=== PATIENT | female | born 1970 | race Caucasian/White ===

== ENCOUNTER 2017-10-03 18:11 | Emergency (ER) | payer OTHER ==
--- NOTE | 2017-10-03 19:20 | EDM.PDOC ---
ED HPI GENERAL MEDICAL PROBLEM - General Chief Complaint: Lower Extremity Injury/Pain Stated Complaint: PT HURT LT FOOT Time Seen by Provider: 10/03/17 18:28 Source of Information: Reports: Patient History Limitations: Reports: No Limitations - History of Present Illness INITIAL COMMENTS - FREE TEXT/NARRATIVE: HISTORY AND PHYSICAL: History of present illness: Winifred is a 46-year-old female for left ankle injury. That she was going down the stairs quickly and on the last step she stepped wrong and everted her left ankle. She is having pain on the left lateral side of the ankle with some swelling and bruise. She is unable to put weight on it. Review of systems: As per history of present illness and below otherwise all systems reviewed and negative. Past medical history: As per history of present illness and as reviewed below otherwise noncontributory. Surgical history: Prior bunionectomy left foot Social history: No reported history of drug or alcohol abuse. Family history: As per history of present illness and as reviewed below otherwise noncontributory. Physical exam: HEENT: Atraumatic, normocephalic, pupils reactive, negative for conjunctival pallor or scleral icterus, mucous membranes moist, throat clear, neck supple, nontender, trachea midline. Extremities: Left lateral ankle is mildly edematous with ecchymosis. Tenderness to palpation of the left lateral malleoli and lateral part of her foot.. Neurovascular unremarkable. Neuro: Awake, alert, oriented. Cranial nerves II through XII unremarkable. Cerebellum unremarkable. Motor and sensory unremarkable throughout. Exam nonfocal. Notes: Diagnostics: [X-ray left ankle X-ray left foot] Therapeutics: [] Impression: [Fracture of the left fifth metatarsal] Plan: [1. Short leg posterior mold splint and crutches, non-weight bearing 2. Tylenol or Motrin as needed for pain 3. Follow-up with podiatry 4. Return to ED as needed as discussed] Definitive disposition and diagnosis as appropriate pending reevaluation and review of above. L foot/ankle Pain Score (Numeric/FACES): 1 - Related Data Allergies Allergy/AdvReac Type Severity Reaction Status Date / Time No Known Allergies Allergy Verified 10/03/17 19:22 Home Meds: Home Meds . [No Known Home Meds] 10/03/17 [History] Review of Systems - Review of Systems Review Of Systems: ROS reveals no pertinent complaints other than HPI. ED EXAM, GENERAL - Physical Exam Exam: See Below (See dictation) Course - Vital Signs Last Recorded V/S: Last Vital Signs Temp 36.4 C 10/03/17 19:00 Pulse 77 10/03/17 19:00 Resp 12 10/03/17 19:00 BP 124/80 10/03/17 19:00 Pulse Ox 96 10/03/17 19:00 - Orders/Labs/Meds Orders: Active Orders 24 hr Category Date Time Status Ankle 2V Lt [CR] Stat Exams 10/03/17 19:07 Taken Foot 2V Lt [CR] Stat Exams 10/03/17 19:07 Taken Departure - Departure Time of Disposition: 20:21 Disposition: Home, Self-Care 01 Condition: Good Clinical Impression: Fracture of fifth metatarsal bone of left foot - Discharge Information Referrals: PCP,None [Primary Care Provider] - Forms: ED Department Discharge Additional Instructions: The following information is given to patients seen in the emergency department who are being discharged to home. This information is to outline your options for follow-up care. We provide all patients seen in our emergency department with a follow-up referral. The need for follow-up, as well as the timing and circumstances, are variable depending upon the specifics of your emergency department visit. If you don't have a primary care physician on staff, we will provide you with a referral. We always advise you to contact your personal physician following an emergency department visit to inform them of the circumstance of the visit and for follow-up with them and/or the need for any referrals to a consulting specialist. The emergency department will also refer you to a specialist when appropriate. This referral assures that you have the opportunity for follow-up care with a specialist. All of these measure are taken in an effort to provide you with optimal care, which includes your follow-up. Under all circumstances we always encourage you to contact your private physician who remains a resource for coordinating your care. When calling for follow-up care, please make the office aware that this follow-up is from your recent emergency room visit. If for any reason you are refused follow-up, please contact the [facility] Emergency Department at and asked to speak to the emergency department charge nurse. [facility] [address] [place] [id number] [1. Short leg posterior mold splint and crutches, non-weight bearing 2. Tylenol or Motrin as needed for pain 3. Follow-up with podiatry 4. Return to ED as needed as discussed - My Orders Last 24 Hours: My Active Orders 10/03/17 19:07 Ankle 2V Lt [CR] Stat Foot 2V Lt [CR] Stat - Assessment/Plan Last 24 Hours: My Active Orders 10/03/17 19:07 Ankle 2V Lt [CR] Stat Foot 2V Lt [CR] Stat
--- NOTE | 2017-10-05 11:37 | CR ---
EXAM DATE: 10/03/17 PATIENT'S AGE: 46 Patient: BABATUNDE MOONEY Facility: [place], [place] Site . Site : 1970 Study: XRay Extremity Left [id number]/6/2018 7:29:46 PM Ordering Physician: Doctor José Final Report: INDICATION: Fell. TECHNIQUE: Two views left ankle. Two views left foot. FINDINGS: Mildly displaced acute fracture or fractures at the base of the left 5th metatarsal with overlying moderate soft tissue swelling. Mild soft tissue swelling left ankle anteriorly. No acute fracture or dislocation in left ankle. Deformity of the mid to distal left 1st metatarsal likely related to prior surgery/osteotomy. Postsurgical changes at the base of the left 1st proximal phalanx with deformity from prior surgery. Persistent mild hallux valgus deformity. Mild degenerative arthritis left foot. Remainder negative. Dictated by Adam Orozco MD @ Oct 03 2017 7:59PM (Electronic Signature) Report Signed by Proxy. HERNESTO
--- NOTE | 2017-10-05 11:38 | CR ---
EXAM DATE: 10/03/17 PATIENT'S AGE: 46 Patient: BABATUNDE MOONEY Facility: [place], [place] Site . Site : 1970 Study: XRay Extremity Left foot [id number]/6/2018 7:30:11 PM Ordering Physician: Doctor José Final Report: INDICATION: Fell. TECHNIQUE: Two views left ankle. Two views left foot. FINDINGS: Mildly displaced acute fracture or fractures at the base of the left 5th metatarsal with overlying moderate soft tissue swelling. Mild soft tissue swelling left ankle anteriorly. No acute fracture or dislocation in left ankle. Deformity of the mid to distal left 1st metatarsal likely related to prior surgery/osteotomy. Postsurgical changes at the base of the left 1st proximal phalanx with deformity from prior surgery. Persistent mild hallux valgus deformity. Mild degenerative arthritis left foot. Remainder negative. Dictated by Adam Orozco MD @ Oct 03 2017 7:59PM (Electronic Signature) Report Signed by Proxy. HERNESTO
== END 2017-10-03 20:37 | disposition home or self-care (01) ==
LOC: MW.ED 18:11
DX: S92.352A Displaced fracture of fifth metatarsal bone, left foot, initial encounter for closed fracture (principal); X50.1XXA Overexertion from prolonged static or awkward postures, initial encounter
CPT/HCPCS: 73600-26-LT; 73600-LT; 73620-26-LT; 73620-LT; 99283